=== PATIENT | female | born 1975 | race Caucasian/White ===

== ENCOUNTER → 2025-05-02 | Emergency (ER) | payer OTHER ==
[~2025-05-02] VITALS: Ht 162.6 cm; Wt 49.9 kg
[~2025-05-02] MED LIST: IOPAMIDOL 370 MG/ML 100 ML INFUS..BTL INJ ONE; KETOROLAC TROMETHAMINE 30 MG/ML VIAL IV STA; Z.0.MULTIVITAMINS1 E
[2025-05-02 08:09] VITALS: TEMP 98
[2025-05-02] MEDS: SODIUM CHLORIDE 0.9% 1000ML 1,000 ML IV STA (08:57)
[2025-05-02] MEDS: ONDANSETRON HCL INJ 2MG/ML 2ML 2 MG/ML VIAL IV STA (08:58)
[2025-05-02 09:00] VITALS: PULSE 75; RESP 18; O2SAT 100
== END | disposition home or self-care (01) ==
LOC: ER 08:12
DX: R10.9 Unspecified abdominal pain (principal)
CPT/HCPCS: 36415; J2405; J2470; J7030; Q9967